=== PATIENT | female | born 1995 | race Caucasian/White ===

== ENCOUNTER 2017-08-17 13:39 | Inpatient (IN) | payer MEDICAID ==
[~2017-08-17] VITALS: Ht 152.4 cm; Wt 62.0 kg
[2017-08-17] VITALS (23 sets, daily range): BP systolic 124–154; BP diastolic 70–94; PULSE 16–97; RESP 16–18; TEMP 98.2–99.3
[2017-08-17] MEDS ORDERED: LACTATED RINGER'S 1000 ML INJ 1,000 ML IV PRN (15:11)
--- NOTE | 2017-08-17 15:11 | PD ---
HPI Chief Complaint Abdominal pain, vaginal discharge, vaginal spotting Date Seen: Aug 17, 2017 Time Seen: 14:59 Travel History International Travel<30 Days: No Contact w/Intl Traveler<30Days: No Known Affected Area: No History of Present Illness HPI 22-year-old at between 27 and 34 weeks gestation based on uncertain criteria, no previous care comes in complaining of abdominal pain associated with vaginal spotting and vaginal discharge that started occurring this morning at 0700. Patient has appointment with an machine candle molder in [place] next week but has not visited a clinic nor has she seen an machine candle molder or had an ultrasound during this . Patient denies any significant medical issues during this and has only been taking vitamins occasionally. Weeks Gestation: 34 Para: 0 : 1 History Past Medical History Medical History: Denies Significant Hx Past Surgical History Surgical History: No Previous Surgery Family History Family History: Negative Social History Alcohol Use: No Tobacco Use: No Substance Abuse: No Allergies-Medications (Allergen,Severity, Reaction): Coded Allergies: No Known Allergies (Unverified , 08/17/17) Review of Systems Except as stated in HPI: all other systems reviewed are Neg Physical Exam Narrative GENERAL: Well-nourished, well-developed patient. SKIN: Warm and dry. HEAD: Normocephalic and atraumatic. EYES: No scleral icterus. No injection or drainage. ENT: No nasal drainage noted. Mucous membranes pink. Airway patent. NECK: Supple, trachea midline. No JVD. CARDIOVASCULAR: Regular rate and rhythm without murmurs, gallops, or rubs. RESPIRATORY: Breath sounds equal bilaterally. No accessory muscle use. ABDOMEN/GI: Abdomen soft, non-tender, bowel sounds present, no rebound, no guarding Gravid to [-32] weeks size Fundal Height: [-] GENITOURINARY: Sterile speculum exam reveals gross rupture membranes with clear fluid at obvious cervical dilation External Genitalia: intact and normal in appearance BUS glands: [-Normal] Cervix: [Anterior-] Dilatation: [5-6-] Effacement: [-90] Station: [--1] Presentation: [-Vertex] Membranes: Ruptured Uterine Contractions: [-Every 3] FHT's: Category: [1-] Baseline: [-140] Reactive: [-mod] Variability: [mod-] Decels: [-absent] EXTREMITIES: No cyanosis or edema. BACK: Nontender without obvious deformity. No CVA tenderness. NEUROLOGICAL: Awake and alert. Motor and sensory grossly within normal limits. Five out of 5 muscle strength in all muscle groups. Normal speech. Data Data Vital Signs Reviewed: Yes MDM Medical Record Reviewed: Yes Plan 22-year-old female with an uncertain gestational age with examination revealing approximately 33cm fundal height in active labor Patient with rupture membranes clear fluid, unknown time of rupture but most likely sometime this morning when she began having discharge. Group B strep unknown Diagnosis Diagnosis: Primary Impression: 32 weeks gestation of Additional Impression: premature rupture of membranes (PPROM) delivered, current hospitalization Concepcion Delacruz MD Aug 17, 2017 15:11
[2017-08-17] MEDS ORDERED: LIDOCAINE HCL 1% 50 ML VIAL I-DERMAL PRN (15:15)
[2017-08-17] MEDS ORDERED: SODIUM CHLORID 0.9% 500 ML INJ 500 ML IV PRN (15:15)
[2017-08-17] MEDS ORDERED: ONDANSETRON HCL 4 MG/2 ML VIAL IV PUSH PRN (15:15)
[2017-08-17] MEDS ORDERED: CITRIC ACID-SODIUM CITRATE LIQ 30 ML UDC PO SCH (15:15)
[2017-08-17] MEDS ORDERED: MINERAL OIL 10 ML VIAL TOPICAL PRN (15:15)
[2017-08-17] MEDS ORDERED: LIDOCAINE HCL 1% 50 ML VIAL INFIL PRN (15:15)
[2017-08-17] MEDS ORDERED: BETAMETHASONE SOD PHOS/ACETATE SUSP 30 MG/5 ML VIAL IM STA (15:18)
[2017-08-17] MEDS ORDERED: PENICILLIN G POTASSIUM INJ 5,000,000 UNITS in SODIUM CHLORIDE 0.9% INJ 100 ML IV ONE (15:30)
[2017-08-17] MEDS ORDERED: SODIUM CHLOR 0.9% 1000 ML INJ 1,000 ML IV PRN (15:30)
[2017-08-17] MEDS ORDERED: OXYTOCIN 30 UNITS-500ML PREMIX 500 ML IV ONE (15:30)
[2017-08-17] MEDS ORDERED: MEASLES, MUMPS, RUBELLA VACCINE 0.5 ML VIAL SQ ONE (16:00)
[2017-08-17] MEDS ORDERED: DIPHTH/TETANUS/ACEL PERTUSSIS (BOOSTER) 0.5 ML VIAL/PFS IM ONE (16:00)
[2017-08-17] MEDS: LACTATED RINGER'S 1000 ML INJ 1,000 ML IV SCH ×2 (16:02→23:30)
[2017-08-17 16:04] LABS: BASOPHIL # 0.1 TH/MM3 (0-0.2); BASOPHIL % 0.8 % (0.0-2.0); EOSINOPHIL # 0.2 TH/MM3 (0-0.4); EOSINOPHIL % 1.3 % (0.0-4.0); HEMATOCRIT 33.9 % (35.0-46.0); HEMO FLAGS DIFF FINAL; LYMPH % 17.3 % (9.0-44.0); MEAN CELL VOLUME 84.3 FL (80.0-100.0); MEAN CORPUSCULAR HEMOGLOBIN 28.9 PG (27.0-34.0); MEAN CORPUSCULAR HGB CONC 34.3 % (32.0-36.0); MONO % 6.6 % (0.0-8.0); PLATELET COUNT 234 TH/MM3 (150-450); RED BLOOD COUNT 4.02 MIL/MM3 (4.00-5.30); RED CELL DISTRIBUTION WIDTH 13.2 % (11.6-17.2); WHITE BLOOD COUNT 17.5 TH/MM3 (4.0-11.0)
[2017-08-17 16:13] LABS: BACTERIA, URINE RARE /hpf; BLOOD, URINE SMALL (NEG); COMMENT (UR) CULT NOT INDICATED; CULTURE IF INDICATED CULT NOT INDICATED; GLUCOSE,URINE NEG (NEG); KETONE, URINE NEG (NEG); NITRITE,URINE NEG (NEG); SQUAMOUS EPITHELIAL CELL URINE <1 /hpf (0-5); URINE COLOR LIGHT-YELLOW (YELLW/STRAW)
[2017-08-17 17:05] LABS: RUBELLA IGG ANTIBODY 5.8 IU/mL (10.0-500.0); RUBELLA STATUS INDETERMINATE (IMMUNE)
[2017-08-17] MEDS ORDERED: ePHEDrine/NS 25 MG/5 ML SYR ONE (17:22)
[2017-08-17] MEDS ORDERED: fentaNYL 2MCG-BUPIV 0.125% INJ 100 ML ONE (17:22)
--- NOTE | 2017-08-17 18:11 | PD.OB.DELI ---
Weeks gestation: 34 Gest age assessed date: Aug 17, 2017 Gest age assessed time: 13:00 Pt started active labor?: Yes Medical induction of labor?: No Artificial rupture of membrane: No Anesthesia: None Episiotomy: None Vaginal Delivery: Normal, Spontaneous Presentation: Occiput anterior, Vertex Nuchal Cord: None Delayed cord clamping (45 sec): Yes Infant: Male Delivery date: Aug 17, 2017 Delivery time: 17:58 One Minute : 8 Five Minute : 9 Placenta: Spontaneous delivery, Intact Laceration: Perineal laceration (Repaired with 4-0 Vicryl) Estimated blood loss: 300 Concepcion Delacruz MD Aug 17, 2017 18:11
[2017-08-17] MEDS ORDERED: BENZOCAINE 20% TOPICAL SPRAY 60 ML CAN TOPICAL PRN (18:15)
[2017-08-17] MEDS ORDERED: WITCH HAZEL 50%/GLYCERIN 12.5% 40 PAD JAR TOPICAL PRN (18:15)
[2017-08-17] MEDS ORDERED: DOCUSATE SODIUM 50 MG/SENNA 8.6 MG TAB PO PRN (18:15)
[2017-08-17] MEDS ORDERED: ONDANSETRON ODT 4 MG TAB PO PRN (18:15)
[2017-08-17] MEDS ORDERED: IBUPROFEN 800 MG TAB PO PRN (18:15)
[2017-08-17] MEDS ORDERED: SODIUM CHLORIDE 0.9% FLUSH 10 ML FLUSH IV FLUSH PRN (18:15)
[2017-08-17] MEDS ORDERED: ALUMINUM/MAGNESIUM/SIMETH 30 ML CUP PO PRN (18:15)
[2017-08-17] MEDS ORDERED: ACETAMINOPHEN 325 MG TAB PO PRN (18:15)
[2017-08-17] MEDS ORDERED: OXYTOCIN 30 UNITS-500ML PREMIX 500 ML IV SCH (18:15)
[2017-08-17] MEDS: SODIUM CHLORIDE 0.9% FLUSH 10 ML FLUSH IV FLUSH SCH (19:30)
[2017-08-17] MEDS ORDERED: PENICILLIN G POTASSIUM INJ 2,500,000 UNITS in SODIUM CHLORIDE 0.9% INJ 100 ML IV SCH (20:00)
--- NOTE | 2017-08-18 07:13 | HHI.OB ---
Subjective Post Day: 1 Remarks Ms Sauceda had no acute events overnight. Her pain is controlled, is ambulating w/o dizziness, tolerating PO, urinating and passing flatus, but no BM yet. Her lochia is normal and decreasing. All information was provided via [employer] video translation. Denies CP, SOB, N/V/D and DVT pain. Objective Vitals/I&O Vital Signs Date Time Temp Pulse Resp B/P (MAP) Pulse Ox O2 Delivery O2 Flow Rate FiO2 08/17/17 21:30 16 16 124/76 (92) 08/17/17 21:30 99.3 08/17/17 20:45 98.2 16 08/17/17 20:30 16 08/17/17 20:30 68 132/81 (98) 08/17/17 20:15 16 08/17/17 20:15 62 127/70 (89) 08/17/17 20:00 77 131/74 (93) 08/17/17 19:47 16 08/17/17 19:45 70 16 129/84 (99) 08/17/17 19:32 79 143/84 (103) 08/17/17 19:30 16 08/17/17 19:15 18 08/17/17 19:15 79 145/89 (107) 08/17/17 19:00 18 08/17/17 19:00 74 151/88 (109) 08/17/17 18:45 74 147/88 (107) 08/17/17 18:45 18 08/17/17 18:30 85 149/94 (112) 08/17/17 18:30 18 08/17/17 18:15 83 145/80 (101) 08/17/17 18:15 18 08/17/17 18:00 97 154/92 (112) 08/17/17 18:00 86 08/17/17 17:41 18 08/17/17 17:40 94 08/17/17 17:40 95 08/17/17 17:38 71 146/92 (110) 08/17/17 17:35 84 08/17/17 17:35 81 08/17/17 17:30 87 08/17/17 17:30 88 08/17/17 15:55 82 08/17/17 15:50 85 08/17/17 15:45 81 Objective Remarks GENERAL: Well-nourished, well-developed patient in NAD. CARDIOVASCULAR: Regular rate and rhythm without murmur, gallop, or rub. RESPIRATORY: All lung melo CTAB. No accessory muscle use. NO increased WOB. ABDOMEN/GI: Abdomen soft, non-tender. Appropriately distended. BS normal. Fundus: Firm, non-tender at umbilicus. GENITOURINARY: Light to moderate bleeding. EXTREMITIES: No cyanosis or edema, non-tender, without signs of DVT. Medications and IVs Current Medications Medications (Trade) Dose Ordered Sig/Micheal Route Start Time Stop Time Status Last Admin Lactated Ringer's 1,000 ml @ 125 mls/hr Q8H IV 08/17/17 15:30 08/17/17 16:02 Lactated Ringer's 1,000 ml @ 3,000 mls/hr Q20M PRN IV 08/17/17 15:11 Sodium Chloride 500 ml @ 1,000 mls/hr ONCE PRN IV 08/17/17 15:15 08/18/17 15:14 Sodium Chloride 1,000 ml @ 100 mls/hr Q10H PRN IV 08/17/17 15:30 (Xylocaine 1% Inj (50 ml)) 0.1 ml UNSCH X1 PRN I-DERMAL 08/17/17 15:15 08/20/17 15:14 (Bicitra Liq) 30 ml TECHNICAL DEVELOPER PO 08/17/17 15:15 08/21/17 15:14 (Zofran Inj) 4 mg Q6H PRN IV PUSH 08/17/17 15:15 08/17/17 16:37 (fentaNYL INJ) 50 mcg Q1H PRN IV PUSH 08/17/17 15:15 08/17/17 16:37 (fentaNYL INJ) 100 mcg Q1H PRN IV PUSH 08/17/17 15:15 (Xylocaine 1% Inj (50 ml)) 10 ml UNSCH X1 PRN INFIL 08/17/17 15:15 08/19/17 15:14 (Muri-Lube Oil) 10 ml UNSCH PRN TOPICAL 08/17/17 15:15 (NS Flush) 2 ml BID IV FLUSH 08/17/17 21:00 08/17/17 19:30 (NS Flush) 2 ml UNSCH PRN IV FLUSH 08/17/17 18:15 (Tylenol) 650 mg Q4H PRN PO 08/17/17 18:15 (Motrin) 800 mg Q8H PRN PO 08/17/17 18:15 (Americaine 20% Top Spr) 1 spray Q4H PRN TOPICAL 08/17/17 18:15 (Tucks Pads) 1 applic QID PRN TOPICAL 08/17/17 18:15 (Giana-Colace) 2 tab Q12H PRN PO 08/17/17 18:15 (Mag-Al Plus Susp Liq) 15 ml Q8H PRN PO 08/17/17 18:15 (Zofran Odt) 4 mg Q6H PRN PO 08/17/17 18:15 Alfa Farrar MD R1 Aug 18, 2017 07:13
[2017-08-18 08:20] VITALS: BP 121/72; PULSE 50; RESP 18; TEMP 97.8
[2017-08-18 19:37] VITALS: BP 120/75; PULSE 76; RESP 14; TEMP 98.1
[2017-08-19] MEDS: LACTATED RINGER'S 1000 ML INJ 1,000 ML IV SCH (07:30)
[2017-08-19 08:00] VITALS: BP 111/63; PULSE 52; RESP 16; TEMP 98.4
[2017-08-19] MEDS ORDERED: PERI PO (08:23)
[2017-08-19] MEDS ORDERED: IBUP1TAB7 PO (08:23)
--- NOTE | 2017-08-19 08:23 | HHI.DCPOC ---
Discharge Care Plan Diagnosis: (1) premature rupture of membranes (PPROM) delivered, current hospitalization (2) 34 weeks gestation of Goals to Promote Your Health * To prevent worsening of your condition and complications * To maintain your health at the optimal level Directions to Meet Your Goals Take your medications as prescribed Follow your dietary instruction Follow activity as directed Keep your appointments as scheduled Take your immunizations and boosters as scheduled If your symptoms worsen call your PCP, if no PCP go to Urgent Care Center or Emergency Room Smoking is Dangerous to Your Health. Avoid second hand smoke Call the 24-hour hour crisis hotline for domestic abuse at Josephine Aguilar MD R2 Aug 19, 2017 08:23
--- NOTE | 2017-08-19 08:48 | HHI.OB ---
Subjective Post Day: 2 Remarks day #2. AFVSS overnight. Pain well controlled. Lochia less than a period. Denies dysuria. No breast tenderness. She is feeding the baby via . Appetite good. No nausea or vomiting. Positive flatus. Negative bowel movement. Ambulating well. Denies calf pain, shortness of breath, or cough. Otherwise, she is doing well this morning and has no other complaints. Objective Vitals/I&O Vital Signs Date Time Temp Pulse Resp B/P (MAP) Pulse Ox O2 Delivery O2 Flow Rate FiO2 08/18/17 19:37 98.1 76 14 120/75 (90) Objective Remarks GENERAL: Well-nourished, well-developed patient in NAD. CARDIOVASCULAR: Regular rate and rhythm without murmur, gallop, or rub. RESPIRATORY: All lung melo CTAB. No accessory muscle use. NO increased WOB. ABDOMEN/GI: Abdomen soft, non-tender. Appropriately distended. BS normal. Fundus: Firm, non-tender below umbilicus. GENITOURINARY: Light to moderate bleeding. EXTREMITIES: No cyanosis or edema, non-tender, without signs of DVT. Medications and IVs Current Medications Medications (Trade) Dose Ordered Sig/Micheal Route Start Time Stop Time Status Last Admin Lactated Ringer's 1,000 ml @ 125 mls/hr Q8H IV 08/17/17 15:30 08/17/17 16:02 Lactated Ringer's 1,000 ml @ 3,000 mls/hr Q20M PRN IV 08/17/17 15:11 Sodium Chloride 1,000 ml @ 100 mls/hr Q10H PRN IV 08/17/17 15:30 (Xylocaine 1% Inj (50 ml)) 0.1 ml UNSCH X1 PRN I-DERMAL 08/17/17 15:15 08/20/17 15:14 (Bicitra Liq) 30 ml HIDE AND SKIN PROCESSING WORKER PO 08/17/17 15:15 08/21/17 15:14 (Zofran Inj) 4 mg Q6H PRN IV PUSH 08/17/17 15:15 08/17/17 16:37 (fentaNYL INJ) 50 mcg Q1H PRN IV PUSH 08/17/17 15:15 08/17/17 16:37 (fentaNYL INJ) 100 mcg Q1H PRN IV PUSH 08/17/17 15:15 (Xylocaine 1% Inj (50 ml)) 10 ml UNSCH X1 PRN INFIL 08/17/17 15:15 08/19/17 15:14 (Muri-Lube Oil) 10 ml UNSCH PRN TOPICAL 08/17/17 15:15 (NS Flush) 2 ml BID IV FLUSH 08/17/17 21:00 08/17/17 19:30 (NS Flush) 2 ml UNSCH PRN IV FLUSH 08/17/17 18:15 (Tylenol) 650 mg Q4H PRN PO 08/17/17 18:15 (Motrin) 800 mg Q8H PRN PO 08/17/17 18:15 (Americaine 20% Top Spr) 1 spray Q4H PRN TOPICAL 08/17/17 18:15 (Tucks Pads) 1 applic QID PRN TOPICAL 08/17/17 18:15 (Giana-Colace) 2 tab Q12H PRN PO 08/17/17 18:15 (Mag-Al Plus Susp Liq) 15 ml Q8H PRN PO 08/17/17 18:15 (Zofran Odt) 4 mg Q6H PRN PO 08/17/17 18:15 Assessment/Plan Problem List: (1) 34 weeks gestation of ICD Codes: Z3A.34 - 34 weeks gestation of (2) premature rupture of membranes (PPROM) delivered, current hospitalization ICD Codes: O42.919 - premature rupture of membranes, unspecified as to length of time between rupture and onset oflabor, unspecified trimester Status: Acute Assessment and Plan 22y/o female who is PPD#2 s/p vaginal delivery -Continue routine care -Motrin and Percocet PRN for pain -Pericolase PRN for constipation -Encouraged OOB. Advised pelvic rest for 6 wks -Will need a follow-up appointment within 6 wks for post- check -Re: ctrl - patient is undecided Discussed with Dr. Lundy Discharge Planning Discharge home today Josephine Aguilar MD R2 Aug 19, 2017 08:48
[2017-08-19] MEDS: SODIUM CHLORIDE 0.9% FLUSH 10 ML FLUSH IV FLUSH SCH (09:00)
[2017-08-19] MEDS ORDERED: INFLUENZA VIRUS VACCINE (QUADRIVALENT) 0.5 ML SYR IM ONE (12:00)
== END 2017-08-19 14:49 | disposition home or self-care (01) | DRG 775 ==
LOC: HOBED 13:39 → H2EB 15:15 → H1EA 20:47
PROVIDERS: ADMIT Obstetrics & Gynecology Obstetrics; ATTEND Obstetrics & Gynecology Obstetrics
PROC: 10E0XZZ Delivery of Products of Conception, External Approach (ICD-10-PCS; principal; 2017-08-17)
PROC: 0HQ9XZZ Repair Perineum Skin, External Approach (ICD-10-PCS; 2017-08-17)
DX: O42.913 Preterm premature rupture of membranes, unspecified as to length of time between rupture and onset of labor, third trimester (principal); O70.0 First degree perineal laceration during delivery; Z23 Encounter for immunization; Z37.0 Single live birth; Z3A.34 34 weeks gestation of pregnancy
CPT/HCPCS: 76815; 80074; 80307; 81001; 85025; 86592; 86703; 86762; 86850; 86900; 86901; 90686; 90707; 90715; J0702; J2405; J2540; J2590; J3010; J7120; Q2038